=== PATIENT | male | born 1955 | race Caucasian/White ===

== ENCOUNTER 2019-05-11 17:35 | Emergency (ER) | payer MEDICARE ==
[2019-05-11] MEDS ORDERED: ONDANSETRON HCL INJ/PF 4 MG/2 ML SDV IV ONE (18:37)
[2019-05-11] MEDS ORDERED: NORMAL SALINE 1000 ML 1,000 ML IV ONE (18:37)
[2019-05-11] MEDS ORDERED: MORPHINE SULFATE 10 MG/ML INJ IV ONE (18:37)
--- NOTE | 2019-05-11 18:39 | ER Document Report ---
ED Medical Screen (RME) - General Chief Complaint: Abdominal Pain Stated Complaint: ABDOMINAL PAIN Time Seen by Provider: 05/11/19 18:33 Primary Care Provider: HENRY MEDINA MD [Primary Care Provider] - Follow up as needed Notes: Patient is a 63-year-old male with a history of hypertension and high cholesterol presents to the emergency department with a chief complaint of lower abdominal pain. Patient states last night he had the acute onset of lower abdominal pain. Patient reports no nausea, vomiting or diarrhea. Patient reports that he is having decreased urinary output but does not feel like his bladder is full. Patient reports his last bowel movement was 2 days ago. Patient reports he is now developing a left lower back pain. Patient denies a history of kidney stones. Patient states that he has been trying to deal with the pain without any relief. TRAVEL OUTSIDE OF THE [place] IN LAST 30 DAYS: No - Related Data Allergies/Adverse Reactions: Penicillins Allergy (Verified 05/11/19 17:36) Past Medical History - Social History Chew tobacco use (# tins/day): No Frequency of alcohol use: None Drug Abuse: None - Past Medical History Cardiac Medical History: Reports: Hx Hypertension Renal/ Medical History: Denies: Hx Peritoneal Dialysis Musculoskeltal Medical History: Reports Hx Musculoskeletal Deformity, Reports Hx Musculoskeletal Trauma Past Surgical History: Reports: Hx Appendectomy, Hx Orthopedic Surgery - left shoulder, right knee - Immunizations Hx Diphtheria, Pertussis, Tetanus Vaccination: Yes - 2006 Physical Exam - Vital signs Vitals: Temp Pulse Resp BP Pulse Ox 97.7 F 78 19 148/89 H 100 05/11/19 17:40 05/11/19 17:40 05/11/19 17:40 05/11/19 17:40 05/11/19 17:40 - Abdominal Inspection: Normal Distension: No distension Bowel sounds: Normal Tenderness: Tender - Generalized lower abdominal tenderness with LUQ tenderness. Organomegaly: No organomegaly - Back Notes: No CVA tenderness. Course - Re-evaluation Re-evalutation: 05/11/19 18:38 I have greeted and performed a rapid initial assessment of this patient. A comprehensive ED assessment and evaluation of the patient, analysis of test resu lts and completion of the medical decision making process will be conducted by additional ED providers. - Vital Signs Vital signs: Temp Pulse Resp BP Pulse Ox 97.7 F 78 19 148/89 H 100 05/11/19 17:40 05/11/19 17:40 05/11/19 17:40 05/11/19 17:40 05/11/19 17:40 Doctor's Discharge - Discharge Referrals: HENRY MEDINA MD [Primary Care Provider] - Follow up as needed
[2019-05-11 19:13] LABS: ABSOLUTE BASOPHILS # (AUTO) 0.1 10^3/uL (0.0-0.2); ABSOLUTE LYMPHOCYTES (AUTO) 1.3 10^3/uL (0.5-4.7); ABSOLUTE MONOCYTES (AUTO) 1.4 10^3/uL (0.1-1.4); ABSOLUTE NEUT (AUTO) 12.5 10^3/uL (1.7-8.2); BASOPHILS % (AUTO) 0.5 % (0-2); EOSINOPHILS % (AUTO) 0.1 % (0-6); HEMATOCRIT 45.2 % (37.9-51.0); HEMOGLOBIN 15.6 g/dL (13.5-17.0); LYMPHOCYTES % (AUTO) 8.3 % (13-45); MEAN CORPUSCULAR HEMOGLOBIN 31.7 pg (27.0-33.4); MEAN CORPUSCULAR HGB CONC 34.6 g/dL (32.0-36.0); MEAN CORPUSCULAR VOLUME 92 fl (80-97); MONOCYTES % (AUTO) 9.3 % (3-13); PLATELET COUNT 186 10^3/uL (150-450); RED BLOOD COUNT 4.93 10^6/uL (4.35-5.55); RED CELL DISTRIBUTION WIDTH 13.9 % (11.5-14.0); SEGMENTED NEUTROPHILS % (AUTO) 81.8 % (42-78); TOTAL CELLS COUNTED % (AUTO) 100 %; WHITE BLOOD COUNT 15.3 10^3/uL (4.0-10.5)
--- NOTE | 2019-05-11 19:15 | ER Document Report ---
ED General - General Chief Complaint: Abdominal Pain Stated Complaint: ABDOMINAL PAIN Time Seen by Provider: 05/11/19 18:33 Primary Care Provider: HENRY MEDINA MD [Primary Care Provider] - Follow up as needed POINT,JERRI Costello MD [NO LOCAL MD] - Follow up in 3-5 days Notes: 63-year-old man presents with gradual onset super pubic and left lower quadrant pain and fullness with decreased urine and stool output, onset 24 hours ago. Mild anorexia no nausea no vomiting no diarrhea. No fever. No history of prostate issues. No history of dactylitis. Status post appendectomy in his teens but no other abdominal surgeries. TRAVEL OUTSIDE OF THE [place] IN LAST 30 DAYS: No - Related Data Allergies/Adverse Reactions: Penicillins Allergy (Verified 05/11/19 17:36) Past Medical History - Social History Smoking Status: Current Every Day Smoker Chew tobacco use (# tins/day): No Frequency of alcohol use: None Drug Abuse: None Family History: Malignancy. denies: Arthritis, CAD, CVA, DM, Hyperlipidemia, Hypertension, Thyroid Disfunction Patient has suicidal ideation: No Patient has homicidal ideation: No - Past Medical History Cardiac Medical History: Reports: Hx Hypertension Renal/ Medical History: Denies: Hx Peritoneal Dialysis Musculoskeletal Medical History: Reports Hx Musculoskeletal Deformity, Reports Hx Musculoskeletal Trauma Past Surgical History: Reports: Hx Appendectomy, Hx Orthopedic Surgery - left shoulder, right knee - Immunizations Hx Diphtheria, Pertussis, Tetanus Vaccination: Yes - 2006 Review of Systems - Review of Systems Notes: REVIEW OF SYSTEMS GEN: Denies fever, chills, weight loss ENT: Denies sore throat, nasal discharge, ear pain EYES: Denies blurry vision, eye pain, discharge CV: Denies chest pain, palpitations, edema RESP: Denies cough, shortness of breath, wheezing GI: Pain nausea vomiting MSK: Denies joint pain/swelling, edema, SKIN: Denies rash, skin lesions LYMPH: Denies swollen glands/lymph nodes NEURO: Denies headache, focal weakness or numbness, dizziness PSYCH: Denies depression, suicidal or homicidal ideation PHYSICAL EXAMINATION General: No acute distress, well-nourished Head: Atraumatic, normocephalic ENT: Mouth normal, oropharynx moist, no exudates or tonsillar enlargement Eyes: Conjunctiva normal, pupils equal, lids normal Neck: No JVD, supple, no guarding CVS: Normal rate, regular rhythm, no murmurs Resp: No resp distress, equal and normal breath sounds bilaterally GI: Pubic fullness with tenderness in the superpubic and left lower quadrant area without guarding Ext: No deformities, no edema, normal range of motion in upper and lower ext Back: No CVA or midline TTP Skin: No rash, warm Lymphatic: No lymphadeopathy noted Neuro: Awake, alert. Face symmetric. GCS 15. Physical Exam - Vital signs Vitals: Temp Pulse Resp BP Pulse Ox 97.7 F 78 19 148/89 H 100 05/11/19 17:40 05/11/19 17:40 05/11/19 17:40 05/11/19 17:40 05/11/19 17:40 Course - Re-evaluation Re-evalutation: 05/11/19 19:15 Lower abdominal pain diverticulitis versus urinary retention versus infection. Bedside ultrasound: No large bladder Given morphine and will do labs and CT. 05/12/19 02:[address] shows a left-sided stone very distal. He does not have signs of obstruction. He has no CVA tenderness. Despite this he does have some soft signs of UTI and an elevated white count. I have given a dose of Rocephin. I let him know that this may past but he also is at risk for infections he was placed on Cipro. His pain was relieved after single dose of medication. He looks quite good and actually is taking his father to see Dr. brooke this week. I asked him to percussion appointment at the same time with urology. He is understanding of this and was given return precautions. I have discussed with the patient there likely diagnosis, aftercare plan, follow-up plans and my usual and customary return precautions. They verbalized understanding of this. - Vital Signs Vital signs: Temp Pulse Resp BP Pulse Ox 97.7 F 78 19 146/95 H 99 05/11/19 17:40 05/11/19 17:40 05/11/19 17:40 05/11/19 23:01 05/11/19 23:01 - Laboratory Result Diagrams: 05/11/19 18:59 05/11/19 18:59 Laboratory results interpreted by me: 05/11/19 05/11/19 05/11/19 18:59 18:59 18:59 WBC 15.3 H Seg Neutrophils % 81.8 H Lymphocytes % 8.3 L Absolute Neutrophils 12.5 H BUN 21 H Creatinine 1.59 H Est GFR ( Amer) 53 L Est GFR (Non-Af Amer) 44 L Glucose 143 H Calcium 10.7 H Urine Ketones TRACE H Urine Blood LARGE H Ur Leukocyte Esterase TRACE H - Diagnostic Test Radiology reviewed: Image reviewed, Reports reviewed Discharge - Discharge Clinical Impression: Kidney stone on left side Condition: Good Disposition: HOME, SELF-CARE Instructions: Kidney Stone ([facility]) Prescriptions: Tamsulosin HCl [Flomax] 0.4 mg PO QHS #7 cap.er.24h Oxycodone HCl/Acetaminophen [Percocet 5-325 mg Tablet] 1 tab PO Q4HP PRN #15 tab PRN Reason: Ciprofloxacin HCl [Cipro] 500 mg PO BID #14 tablet RX: Ibuprofen [Advil] 400 mg PO Q6 #20 tablet Referrals: HENRY MEDINA MD [Primary Care Provider] - Follow up as needed MELE,JERRI Costello MD [NO LOCAL MD] - Follow up in 3-5 days
[2019-05-11 19:24] LABS: APPEARANCE,URINE SLIGHTLY-CLOUDY; BILIRUBIN,URINE NEGATIVE (NEGATIVE); COLOR,URINE YELLOW; GLUCOSE, URINE NEGATIVE (NEGATIVE); KETONES,URINE TRACE mg/dL (NEGATIVE); LEUKOCYTE ESTERASE,URINE TRACE (NEGATIVE); NITRITE,URINE NEGATIVE (NEGATIVE); PROTEIN,URINE NEGATIVE (NEGATIVE); URINE SPECIFIC GRAVITY 1.025; UROBILINOGEN,URINE NEGATIVE mg/dL (<2.0)
[2019-05-11 19:26] LABS: ALBUMIN 4.9 g/dL (3.5-5.0); ALKALINE PHOSPHATASE 84 U/L (38-126); ANION GAP 12 (5-19); ASPARTATE AMINO TRANSFERASE 26 U/L (17-59); BILIRUBIN,DIRECT 0.2 mg/dL (0.0-0.4); BILIRUBIN,TOTAL 1.3 mg/dL (0.2-1.3); BLOOD UREA NITROGEN 21 mg/dL (7-20); CALCIUM 10.7 mg/dL (8.4-10.2); CARBON DIOXIDE 22 mmol/L (22-30); CHLORIDE 105 mmol/L (98-107); GLUCOSE 143 mg/dL (75-110); POTASSIUM 4.7 mmol/L (3.6-5.0); TOTAL PROTEIN 7.5 g/dL (6.3-8.2)
--- NOTE | 2019-05-11 21:08 | RADIOLOGY REPORT (SQ) ---
CT ABDOMEN PELVIS WITH IV CONTRAST EXAM DATE: 05/11/2019 7:14 PM CDT HISTORY: Left lower quadrant pain. COMPARISON: None. TECHNIQUE: CT scan of the abdomen and pelvis was performed with IV contrast. This exam was performed according to our departmental dose-optimization program, which includes automated exposure control, adjustment of the mA and/or kV according to patient size and/or use of iterative reconstruction technique. FINDINGS: The lung bases are clear. No pleural or pericardial effusions. Gallstones are present. Liver, spleen, pancreas, adrenal glands, and right kidney are normal. There is mild left perinephric stranding with mild left hydronephrosis. There is likely a 3 mm obstructing stone in the distal left ureter. There is also mild stranding of the urinary bladder wall. Mild wall thickening of the distal colon. The appendix is not visualized. No small bowel obstruction. No intraperitoneal free fluid or free air is seen. The aorta is normal caliber and contains atherosclerotic calcifications. No acute bony findings are seen. IMPRESSION: Likely 3 mm obstructing stone in the distal left ureter with mild left hydronephrosis.
[2019-05-11] MEDS ORDERED: HYDROMORPHONE HCL INJ/PF 2 MG/ML AMPULE IV ONE (21:30)
[2019-05-11] MEDS ORDERED: CEFTRIAXONE 1 GM/D5W RTU 1 GM/50 ML RTUPB IV ONE (21:30)
[2019-05-11 23:12] VITALS: BP 146/95
== END 2019-05-11 23:18 | disposition home or self-care (01) ==
LOC: ER 17:35
DX: N20.0 Calculus of kidney (principal); R10.9 Unspecified abdominal pain; R10.32 Left lower quadrant pain; R33.9 Retention of urine, unspecified; F17.200 Nicotine dependence, unspecified, uncomplicated; I10 Essential (primary) hypertension
CPT/HCPCS: 99284; 96361; 96374; 96375; 36415; 87040; 83690; 85025; 87077; 80053; 81001; 74177; J2270; J1170; J2405; J7030; J0696

== ENCOUNTER → 2019-06-03 | Outpatient (CLI) | payer MEDICARE ==
--- NOTE | 2019-06-03 15:42 | RADIOLOGY REPORT (SQ) ---
EXAM DESCRIPTION: U/S RETROPERITON (RENAL/AORTA) COMPLETED DATE/TIME: 06/03/2019 3:24 pm REASON FOR STUDY: N20.0 CALCULUS OF KIDNEY N20.0 CALCULUS OF KIDNEY COMPARISON: CT abdomen pelvis dated 05/11/2019 TECHNIQUE: Dynamic and static grayscale images acquired of the kidneys and bladder and recorded on P ACS. Additional selected color Doppler and spectral images recorded. LIMITATIONS: None. FINDINGS: RIGHT KIDNEY: The right kidney measures 8.8 cm in length. Normal echogenicity. No natalio id or suspicious masses. No hydronephrosis. There is a small right renal cyst. No calcifications . LEFT KIDNEY: The left kidney measures 9.6 cm in length. Normal echogenicity. No solid or suspici ous masses. No hydronephrosis. No calcifications. Slightly lobular contour as demonstrated on re cent CT. BLADDER: No masses. OTHER FINDINGS: No other significant finding. IMPRESSION: Small right renal cyst. No other significant findings. TECHNICAL DOCUMENTATION: JOB ID: [id number] [employer]- All Rights Reserved Reading location - IP/workstation name: [email or web address]
== END ==
LOC: RAD 14:47
PROVIDERS: ATTEND Urology
DX: N20.0 Calculus of kidney (principal); N28.1 Cyst of kidney, acquired
CPT/HCPCS: 76770